=== PATIENT | female | born 1950 | race Asian ===

== ENCOUNTER 2020-07-13 10:13 | Emergency (ER) | payer MEDICARE, OTHER ==
[~2020-07-13] VITALS: Ht 157.5 cm; Wt 48.5 kg
[~2020-07-13 10:13] MED LIST: APIX2.5T PO; AZIT-104 PO; CARV6 PO; CEFX2I IM; CHOL100018 PO; CLON0.1T83 PO; DEXA2 PO; DOCU-275 PO; FAMO20 PO; FOLI0.4T6 PO; LEVO125T95 PO; NIFE-64 PO; SEVE800T17 PO
[2020-07-13 12:45] LABS: BASOPHILS % (AUTO) 1.3 % (0.0-2.0); EOSINOPHILS % (AUTO) 0.9 % (1.0-6.0); HEMATOCRIT 43.2 % (36-46); HEMOGLOBIN 14.2 g/dL (12.0-16.0); LYMPHOCYTES # (AUTO) 0.5 K/uL (1.0-4.8); LYMPHOCYTES % (AUTO) 9.2 % (22.0-44.0); MEAN CORPUSCULAR HEMOGLOBIN 28.8 pg (26.0-34.0); MEAN CORPUSCULAR HGB CONC 32.9 G/dL (31.0-37.0); MEAN CORPUSCULAR VOLUME 88 fL (80-100); MONOCYTES # (AUTO) 0.3 K/uL (0.1-1.0); MONOCYTES % (AUTO) 4.8 % (2.0-9.0); NEUTROPHILS # (AUTO) 4.4 K/uL (1.8-7.7); NEUTROPHILS % (AUTO) 83.8 % (40.0-70.0); PLATELET COUNT (AUTO) 116 K/uL (150-450); RED BLOOD CELL COUNT(AUTO) 4.93 MIL/uL (4.00-5.20); RED CELL DISTRIBUTION WIDTH 16.5 % (11.5-14.5)
[2020-07-13 13:10] LABS: D-DIMER 3.75 mg/L FEU (0.00-0.50); PROTHROMBIN TIME 10.4 SEC (9.4-11.6)
[2020-07-13 14:02] LABS: ANION GAP 9 mmol/L (8-16); CALCIUM, TOTAL 9.7 mg/dL (8.8-10.5); CARBON DIOXIDE 31 mmol/L (22-29); CHLORIDE 99 mmol/L (98-107); CREATININE 2.28 mg/dL (0.60-1.30); GLOMERULAR FILTR. RATE CALC 21 mL/min (>60); GLUCOSE,RANDOM 75 mg/dL (70-110); POTASSIUM 4.3 mmol/L (3.5-5.1); SODIUM SERUM 139 mmol/L (136-145); UREA NITROGEN, BLOOD 23 mg/dL (7-18)
[2020-07-13 14:07] LABS: ALANINE AMINOTRANSFERASE 91 U/L (12-78); ALKALINE PHOSPHATASE 194 U/L (46-116); ASPARTATE AMINOTRANSFERASE 49 U/L (15-37); BILIRUBIN,TOTAL 0.6 mg/dL (0.1-1.0); CREATINE KINASE, TOTAL ONLY 16 U/L (26-192)
[2020-07-13 14:20] LABS: TROPONIN I < 0.02 ng/mL (0.00-0.05)
[2020-07-13 14:32] LABS: LACTIC ACID 1.3 mmol/L (0.4-2.0)
[2020-07-13 14:51] LABS: INFLUENZA TYPE A NEGATIVE FOR TYPE A (NEGATIVE); INFLUENZA TYPE B NEGATIVE FOR TYPE B (NEGATIVE)
[2020-07-13 15:00] VITALS: BP 136/85
[2020-07-13 15:00] LABS: AMMONIA 39 umol/L (11-32)
[2020-07-13 15:35] LABS: C-REACTIVE PROTEIN QUANT 2.22 mg/dL (0.00-0.30); FERRITIN 5769 ng/mL (8-252); FREE T4 (FREE THYROXINE) 1.36 ng/dL (0.76-1.46); LACTATE DEHYDROGENASE 276 U/L (81-234); THYROID STIMULATING HORMONE 0.69 uIU/mL (0.36-3.74)
[2020-07-13 16:07] LABS: B-TYPE NATRIURETIC PEPTIDE 462 pg/mL (0-100)
== END 2020-07-13 15:15 | disposition home or self-care (01) ==
LOC: EMS 10:19
DX: U07.1 COVID-19 (principal); G93.40 Encephalopathy, unspecified; I13.11 Hypertensive heart and chronic kidney disease without heart failure, with stage 5 chronic kidney disease, or end stage renal disease; E11.22 Type 2 diabetes mellitus with diabetic chronic kidney disease; N18.6 End stage renal disease; F32.9 Major depressive disorder, single episode, unspecified; Z99.2 Dependence on renal dialysis; Z88.5 Allergy status to narcotic agent
CPT/HCPCS: 36415; 70450; 71045; 80053; 82140; 82550; 82728; 83605; 83615; 83880; 84145; 84439; 84443; 84484; 85025; 85379; 85384; 85610; 85730; 86140; 87040; 87426; 87804; 93005; 99285; G0480

== ENCOUNTER 2022-11-28 17:37 | Emergency (ER) | payer MEDICARE, OTHER ==
[~2022-11-28] VITALS: Ht 149.9 cm; Wt 39.8 kg
[~2022-11-28 17:37] MED LIST changes: -CHOL100018 PO; +CHOL25TA4 PO; +CLON0.1T2 PO; -CLON0.1T83 PO; -DOCU-275 PO; +DOCU-385 PO
[2022-11-28] MEDS ORDERED: SODIUM CHLORIDE 0.9% 1,000 ML IV ONE (22:15)
[2022-11-28 22:32] LABS: BASOPHILS % (AUTO) 0.5 % (0.0-2.0); EOSINOPHILS % (AUTO) 0.2 % (1.0-6.0); HEMATOCRIT 38.1 % (36-46); HEMOGLOBIN 11.6 g/dL (12.0-16.0); LYMPHOCYTES # (AUTO) 1.2 K/uL (1.0-4.8); LYMPHOCYTES % (AUTO) 8.9 % (22.0-44.0); MEAN CORPUSCULAR HGB CONC 30.5 G/dL (31.0-37.0); MEAN CORPUSCULAR VOLUME 88 fL (80-100); MONOCYTES # (AUTO) 1.1 K/uL (0.1-1.0); MONOCYTES % (AUTO) 8.6 % (2.0-9.0); NEUTROPHILS # (AUTO) 10.8 K/uL (1.8-7.7); NEUTROPHILS % (AUTO) 81.8 % (40.0-70.0); RED BLOOD CELL COUNT(AUTO) 4.31 MIL/uL (4.00-5.20); RED CELL DISTRIBUTION WIDTH 18.2 % (11.5-14.5)
[2022-11-28 22:40] LABS: CALCIUM, TOTAL 9.2 mg/dL (8.8-10.5); CREATININE 4.88 mg/dL (0.60-1.30); POTASSIUM 3.5 mmol/L (3.5-5.1)
[2022-11-28 22:45] LABS: PLATELET COUNT (AUTO) 50 K/uL (150-450)
[2022-11-28] MEDS ORDERED: LORazepam 2 MG/ML VIAL ONE (22:50)
[2022-11-29 01:13] VITALS: BP 117/79
== END 2022-11-29 01:14 | disposition home or self-care (01) ==
LOC: EMS 17:38
DX: E11.22 Type 2 diabetes mellitus with diabetic chronic kidney disease (principal); N18.6 End stage renal disease; I95.9 Hypotension, unspecified; D72.829 Elevated white blood cell count, unspecified; D69.6 Thrombocytopenia, unspecified; R51.9 Headache, unspecified; I50.9 Heart failure, unspecified; F41.9 Anxiety disorder, unspecified; F32.A Depression, unspecified; Z99.2 Dependence on renal dialysis; Z88.5 Allergy status to narcotic agent; Z79.899 Other long term (current) drug therapy
CPT/HCPCS: 99291; 96360; 70450; 80048; 82962; 83605; 85025; 36415; 71045; 93005; J7030; J2060